=== PATIENT | male | born 1975 | race Two or more races ===

== ENCOUNTER → 2016-07-14 | Outpatient (REF) | payer OTHER | LOC: EDBD → M SFHCLERA 11:04 | PROVIDERS: ATTEND Physician Assistant | DX: J11.1 Influenza due to unidentified influenza virus with other respiratory manifestations (principal) ==

== ENCOUNTER → 2016-07-14 | Outpatient (CLI) | payer OTHER ==
--- NOTE | 2016-07-14 12:25 | REP ---
CHEST X-RAY: Two views. HISTORY: Cough and fever. COMPARISON STUDY: No comparison study . FINDINGS: The lungs are well inflated and free of infiltrate. The pleural angles are sharp. The heart size is normal. Pulmonary vasculature is not increased. No significant bony abnormality is seen. IMPRESSION: Negative chest x-ray. Signed by Alton Reynolds MD 07/14/2016 02:01 P
== END ==
LOC: EDBD → M LRY 10:52
PROVIDERS: ATTEND Physician Assistant
DX: R50.9 Fever, unspecified (principal); R05 Cough